=== PATIENT | male | born 1970 | race Two or more races ===

== ENCOUNTER 2022-12-09 11:45 | Emergency (ER) | payer SELFPAY ==
[2022-12-09 11:47] VITALS: BP 120/90; PULSE 101; RESP 17; TEMP 36.8; O2SAT 96; BMI 27.1
[2022-12-09 11:54] VITALS: BP 120/90; PULSE 112; O2SAT 95
--- NOTE | 2022-12-09 12:04 | PC.NURSE ---
pt instructed to get into gown at this time
--- NOTE | 2022-12-09 12:21 | PC.NURSE ---
this nurse and MD at bedside for pt I&D. packed wound with 1/2in iodaform and made appointment with infusion on december 11 for dressing change
--- NOTE | 2022-12-09 12:21 | HMH.EDGENADL ---
Discharge Plan Disposition Patient Disposition: Home, Self-Care Prescriptions Prescriptions: New hydrocodone-acetaminophen 5-325 mg tablet 1 tab PO Q6H PRN (Reason: pain) 3 Days Qty: 12 0RF amoxicillin-pot clavulanate 875-125 mg tablet 1 tab PO BID 10 Days Qty: 20 0RF Referrals Follow up/Referrals: Tino Rueda MD [Primary Care Provider] - See instructions Jeffery Bunch MD [Staff Physician] - See instructions (48 hours for wound re-assessment ) Activity Restrictions/Add. Instructions Additional Instructions/Restrictions: Have your packing replaced in 48 hours and follow-up with Dr. Ward or Dr. Vital within 1 week ideally within 48 hours for wound reassessment. Return with any spreading redness fevers feeling systemically ill etc. Clinical Impressions Clinical Impression: Abscess, perirectal Discharge ED Provider: Damaris Khan General Adult HPI General Stated complaint: Pain near anal area Time Seen by Provider: 12/09/22 12:21 History of Present Illness HPI narrative: Patient is a 52-year-old male presenting with pain around his rectal area its been going on the last several days. Is located on the right inferior medial aspect of his buttock red hot tender swollen. He has no purulent drainage from his rectum no history of any abscesses in his rectum in the past. No fevers or chills does not feel sick. Denies any other significant past medical history. Related Data Previous Rx's Medication Instructions Recorded amoxicillin 875 mg-potassium 1 tab PO BID 10 days #20 tabs 12/09/22 clavulanate 125 mg tablet hydrocodone 5 mg-acetaminophen 325 1 tab PO Q6H PRN pain 3 days #12 12/09/22 mg tablet tabs Allergies Allergy/AdvReac Type Severity Reaction Status Date / Time No Known Allergies Allergy Verified 12/09/22 12:53 [facility] Disclaimer: The information contained in this section may have been updated after the patient was seen, as this information can be updated by other users. Social History Smoking Status: Unknown if ever smoked alcohol intake: never current occupational status: other Travel in the last 8 weeks: None ROS Obtained: Yes All systems reviewed & no additional complaints except as documented Physical Exam General General appearance: alert Respiratory Respiratory exam: Present normal lung sounds bilaterally; Absent wheezes Cardiovascular Cardiovascular exam: Present regular rate; Absent tachycardia Abdominal Exam Abdominal exam: Present other (Patient has a 8 x 4 cm area of erythema and fluctuance on the inferior medial aspect of his buttock that does not come near his anus) Neurological Exam Neurological exam: Present alert and oriented X3 Medical Decision Making Dev Inquiry Pt receiving controlled substance: No Vital Signs: 12/09/22 11:54 Pulse Rate 112 H Blood Pressure 120/90 Blood Pressure Mean 99 02 Sat by Pulse Oximetry 95 Oxygen Delivery Method Room Air Orders (Tests/Meds): ED MEDICATIONS Discontinued Medications Generic Name Dose Route Start Last Admin Trade Name Freq PRN Reason Stop Dose Admin Amoxicillin/Clavulanate Potassium 2 each 12/09/22 12:34 Amoxicillin/Pot Clavulan 500mg Tablet PO 12/09/22 12:35 ONCE ONE ORDERS Category Date Time Status Wound Culture and Gram Stain Stat Micro 12/09/22 12:34 Ordered Medical Decision Narrative: 52-year-old male with a perirectal abscess no evidence of any fistula from a clinical standpoint not systemically ill I discussed with Dr. Ward his preference and we will do a bedside incision and drainage start the patient on Augmentin and have him follow-up within 1 week with surgery. No need for any labs or CT imaging aside from Gram stain and culture. I did a limited bedside ultrasound and evaluated the point of maximal fluctuance there is a 5 x 5 cm area of abscess on the medial aspect of his right buttock and incision was placed above this large amoun
--- NOTE | 2022-12-09 12:34 | PC.NURSE ---
DR RODARTE SPEAKING WITH DR BAILEY
[2022-12-09 13:12] VITALS: BMI 27.1
--- NOTE | 2022-12-09 13:29 | PC.NURSE ---
pt given mesh panties and a large maxi pad to put on for comfort and to help stay clean. pt given a bag full of things to assist with comfort and staying clean at home. no complaints at this time
--- NOTE | 2022-12-09 13:31 | PC.NURSE ---
[id number]- spoke with RADHA Law regarding pt's appointment with Dr. Vital.
[2022-12-09 13:38] VITALS: BP 123/86; PULSE 81; RESP 17; TEMP 37; O2SAT 98
--- NOTE | 2022-12-12 17:31 | PC.NURSE ---
per dr. khan request to do f/u call with pt. contacted pt with both numbers noted on pts chart, no answer at either number, voicemail left for pt asking for return call. Dr. Khan gave verbal order for Levaquin 750 mg PO 1 tablet daily x7 days if symptoms not improving.
== END 2022-12-09 13:45 | disposition home or self-care (01) ==
PROVIDERS: Emergency Provider Student in an Organized Health Care Education/Training Program; PCP Emergency Medicine
DX: K61.1 Rectal abscess (principal)
CPT/HCPCS: 10060; 87070; 87077; 87186; 87205; 99283; 99284

== ENCOUNTER 2022-12-11 11:19 | Outpatient (CLI) | payer SELFPAY | END 2022-12-16 10:55 | disposition home or self-care (01) | LOC: INF 11:21 | PROVIDERS: PCP Emergency Medicine; Visit Provider Student in an Organized Health Care Education/Training Program | DX: L02.31 Cutaneous abscess of buttock (principal); Z48.01 Encounter for change or removal of surgical wound dressing | CPT/HCPCS: G0463 ==

== ENCOUNTER 2022-12-16 10:19 | Outpatient (CLI) | payer SELFPAY ==
--- NOTE | 2022-12-16 12:41 | PC.NURSE ---
1040 - PT CAME IN AND PACKING/DRESSING FROM YESTERDAYS DR WOODSON HAD ALREADY COME OUT. IRRIGATED WOUND WITH NS AND DRIED OUT AND MEASURED WOUND WITH STERILE Q TIP. THERE IS A TUNNEL GOING UPWARD THAT MEASURES 3.5 CM AND A TUNNEL DOING DOWNWARD, MEASURING 3 CM. PACKED WITH 1/4 IN PLAIN PACKING STRIP AND COVERED WITH TEGADERM.
== END 2022-12-16 10:55 | disposition home or self-care (01) ==
LOC: INF 10:19
PROVIDERS: PCP Emergency Medicine; Visit Provider Surgery
DX: K61.1 Rectal abscess (principal); Z48.01 Encounter for change or removal of surgical wound dressing
CPT/HCPCS: G0463

== ENCOUNTER 2022-12-17 08:31 | Outpatient (CLI) | payer SELFPAY | END 2022-12-17 08:56 | disposition home or self-care (01) | LOC: INF 08:31 | PROVIDERS: PCP Emergency Medicine; Visit Provider Surgery | DX: K61.1 Rectal abscess (principal); Z48.01 Encounter for change or removal of surgical wound dressing | CPT/HCPCS: G0463 ==

== ENCOUNTER 2022-12-18 08:16 | Outpatient (CLI) | payer SELFPAY | END 2022-12-18 08:38 | disposition home or self-care (01) | LOC: INF 08:16 | PROVIDERS: PCP Emergency Medicine; Visit Provider Surgery | DX: K61.1 Rectal abscess (principal); Z48.01 Encounter for change or removal of surgical wound dressing | CPT/HCPCS: G0463 ==

== ENCOUNTER 2022-12-19 07:58 | Outpatient (CLI) | payer SELFPAY ==
--- NOTE | 2022-12-19 08:35 | PC.NURSE ---
pt scheduled for dressing change of perianal abscess. pt tolerated removal of old packing well. area and wound bed cleansed with saline. new dressing packed in wound bed. able to pack dressing downward, but due to pt anatomy and angle of incision packing was difficult to insert upward. tegaderm applied over site.
== END 2022-12-19 08:35 | disposition home or self-care (01) ==
PROVIDERS: PCP Emergency Medicine; Visit Provider Surgery
DX: K61.1 Rectal abscess (principal); Z48.01 Encounter for change or removal of surgical wound dressing
CPT/HCPCS: G0463

== ENCOUNTER → 2022-12-20 07:43 | Outpatient (CLI) | payer SELFPAY | LOC: INF 07:44 | PROVIDERS: PCP Emergency Medicine; Visit Provider Surgery | DX: K61.1 Rectal abscess (principal); Z48.01 Encounter for change or removal of surgical wound dressing | CPT/HCPCS: G0463 ==

== ENCOUNTER 2022-12-21 08:20 | Outpatient (CLI) | payer SELFPAY | END 2022-12-21 08:40 | disposition home or self-care (01) | LOC: INF 08:20 | PROVIDERS: PCP Emergency Medicine; Visit Provider Surgery | DX: K61.1 Rectal abscess (principal); Z48.01 Encounter for change or removal of surgical wound dressing | CPT/HCPCS: G0463 ==

== ENCOUNTER 2022-12-22 08:27 | Outpatient (CLI) | payer SELFPAY | END 2022-12-22 08:53 | disposition home or self-care (01) | LOC: INF 08:28 | PROVIDERS: PCP Emergency Medicine; Visit Provider Surgery | DX: K61.1 Rectal abscess (principal); Z48.01 Encounter for change or removal of surgical wound dressing | CPT/HCPCS: G0463 ==

== ENCOUNTER 2022-12-23 08:31 | Outpatient (CLI) | payer SELFPAY | END 2022-12-23 08:58 | disposition home or self-care (01) | LOC: INF 08:32 | PROVIDERS: PCP Emergency Medicine; Visit Provider Surgery | DX: K61.1 Rectal abscess (principal); Z48.01 Encounter for change or removal of surgical wound dressing | CPT/HCPCS: G0463 ==

== ENCOUNTER 2023-01-01 09:39 | Outpatient (CLI) | payer SELFPAY | END 2023-01-01 10:20 | disposition home or self-care (01) | LOC: INF 09:39 | PROVIDERS: PCP Emergency Medicine; Visit Provider Surgery | DX: K61.1 Rectal abscess (principal); Z48.01 Encounter for change or removal of surgical wound dressing | CPT/HCPCS: G0463 ==

== ENCOUNTER 2023-03-30 09:47 | Outpatient (CLI) | payer SELFPAY ==
--- NOTE | 2023-03-30 09:54 | PC.NURSE ---
0954-collected labs via venipuncture stick with butterfly needle in left ac;sent specimens to lab.pt to d/c home
[2023-03-30 10:32] LABS: Basophils # 0.1 K/mm3 (0-0.2); Basophils % 0.8 % (0.1-2.0); Eosinophils # 0.2 K/mm3 (0.0-0.4); Eosinophils % 2.5 % (0.1-12.0); Hematocrit 50.5 % (42.0-52.0); Hemoglobin 16.1 g/dL (14.1-18.0); Lymphocytes # 2.5 K/mm3 (0.7-4.5); Lymphocytes % 37.8 % (10-50); Mean Corpuscular HGB Conc 31.8 g/dL (31.8-35.4); Mean Corpuscular Hemoglobin 30.7 pg (27.0-31.2); Mean Corpuscular Volume 96.6 fl (80-94); Mean Platelet Volume 8.4 fl (7.4-10.4); Monocytes # 0.4 K/mm3 (0.1-1.0); Monocytes % 5.4 % (1.7-9.3); Neutrophils # 3.5 K/mm3 (1.8-7.8); Neutrophils % 53.5 % (37.0-80.0); Platelet Count 215 K/mm3 (142-424); Red Blood Count 5.23 M/mm3 (4.60-6.20); Red Cell Distribution Width 13.7 % (11.5-17.5); White Blood Count 6.5 K/mm3 (4.8-10.8)
[2023-03-30 10:38] LABS: Anion Gap 14.9 mEq/L (5-15); Blood Urea Nitrogen 15 mg/dl (9-20); Calcium 9.2 mg/dl (8.4-10.2); Carbon Dioxide 22 mmol/L (22.0-30.0); Chloride 104 mmol/L (98-107); Estimated Glomerular Filt Rate 175 ml/min (>60); GFR (African American) 211 ML/MIN (>60); Glucose 246 mg/dl (74-100); Potassium 3.9 mmoL/L (3.5-5.1); Sodium 137 mmol/L (136-145)
== END 2023-03-30 10:05 | disposition home or self-care (01) ==
LOC: INF 09:48
PROVIDERS: Surgery; PCP Emergency Medicine; Visit Provider Emergency Medicine
DX: K60.3 Anal fistula (principal)
CPT/HCPCS: 36415; 80048; 85025

== ENCOUNTER 2023-04-05 07:57 | Day surgery (SDC) | payer SELFPAY ==
[2023-04-05] VITALS (10 sets, daily range): BP systolic 120–144; BP diastolic 75–93; PULSE 54–64; RESP 13–22; TEMP 36.1–43; O2SAT 94–98; BMI 35.7
--- NOTE | 2023-04-05 08:25 | P.PNANES_ITS ---
[facility] Disclaimer: The information contained in this section may have been updated after the patient was seen, as this information can be updated by other users. Medical History Abscess, perirectal Alcohol abuse Surgical History (Updated 04/05/23 @ 08:16 by Parris Aviles RN) No significant past surgical history Family History (Updated 04/05/23 @ 08:16 by Parris Aviles RN) Other No significant family history Social History (Updated 04/05/23 @ 08:16 by Parris Aviles RN) Smoking Status: Never smoker alcohol intake: current substance use type: denies use current occupational status: employed Travel in the last 8 weeks: None household members: significant other housing: house lives independently: No marital status: life partner service: No care home: No physical activity: none special jose angel needs: No agree to transfusion: No [facility] Anesthesia Checklist Patient Identification Patient Identification: Arm Band Structural Data Admitted From: Home Planned Operative Procedure/s: EUA, Anal Fistulotomy Consent for Planned Operative Procedure(s) Verified: Yes Verified Documents: Surgical Consent and History and Physical NPO Status Verified Time NPO: 00:00 Additional verifications Anesthesia Reactions: No Airway Assessment Mallampati Score:: Class II C-Spine Mobility Assessed: Yes TMJ Mobility Assessed: Yes Dentition: Good Dentition Neurological Assessment Level of Consciousness: Awake and Alert Anesthesia Plan Anesthesia Risk discussed: Yes Anesthesia Plan: Verified ASA Class: II Anesthesia Type: General
--- NOTE | 2023-04-05 09:09 | EXP.OP.NOTE ---
Date of procedure: 04/05/23 Pre-op Diagnosis:: Possible anal fistula Post-op Diagnosis:: Same Procedure performed:: Exam under anesthesia Surgeon:: Nishant Vital MD SWEET POTATO DISINTEGRATOR:: Ge Ochoa Anesthesia: LMA Estimated blood loss (mL): 1 Clinical Note:: Patient presents to the operating room for possible fistulotomy for probable anal fistula. He is a 53-year-old male who had undergone incision and drainage in the emergency department for perianal abscess on 12/09/2022. He was followed in the office regularly. The area had closed off and healed over but then he had developed some drainage of serosanguineous fluid and had recurrent opening. He was seen in the office on 02/25/2023 for this. At that time it was apparent that the patient had a probable perianal fistula. I had the family continue to place 1/4 inch gauze as a wick. She is no longer able to place this but does probe the area with the back end of a cotton-tipped applicator. Has had some occasional drainage. Given the persistent opening and occasional drainage it was felt that clinically he likely had an anal fistula. Options were discussed and plan was made for exam under anesthesia with probable subcutaneous fistulotomy versus seton placement if intersphincteric or Transphincteric fistula identified. Operative findings:: Patient had a short blind external opening with no definite fistula. No evidence of any internal opening. Operative note:: Patient was taken the operating room. He was given preoperative intravenous antibiotic. In the operating room he was placed in a supine position. General anesthesia was induced via LMA. He was then positioned in lithotomy position. He was prepped and draped in the standard surgical fashion. Inspection was performed. In the right anterior lateral location there was apparent external opening at previous incision and drainage site. Digital examination was performed which revealed no evidence of any intra-anal pathology. [place] anoscope was inserted. There is some minor erythematous internal hemorrhoids but no definite internal opening was identified. Blunt probe was inserted into the external opening. There was very little tracking. The probe only went to about 1 cm in depth. Repositioning and redirection of the probe resulted in no significant tracking. The probe was then curved and attempt was made to identify internal opening of which none was noted. Smaller probe was then brought onto the field. This was inserted. Once again there was no appreciable tracking of any definitive fistula. An 18-gauge angiocatheter was inserted into the apparent external opening and saline was gently flushed and attempt to see if there was any tracking of which none was noted. Minimal opening was irrigated. At this time it was felt that there was no definite fistula and therefore fistulotomy would not be warranted. Plan will be for watchful waiting. He could develop a fistula in the future. Condition: stable Disposition: PACU Complications:: None immediately apparent
--- NOTE | 2023-04-05 09:14 | EXP.ANES.I ---
[facility] Anesthesia Record Part I Anesthesia Record I Intake, IV Amount: 800 Hydration: Adequate Estimated blood loss (mL): 5 Urine output (mL): 0 Blood Products used (#): none Blood Pressure: 120/75 SaO2: 94 Pulse Rate: 58 Airway Patency: Patent Respiratory Rate: 16 Temperature: 98.5 F Patient is:: Drowsy and Stable Stable to PACU at:: 09:10
--- NOTE | 2023-04-06 07:07 | P.PNANES_ITS ---
[facility] Anesthesia Record Part II Anesthesia Record Part II Discharge Time: 09:40 Destination: Surgical Day Care (OP Surgery) PACU nurse assessment reviewed?: Yes Patient Condition:: Good Anesthesia Complications:: None Swallowing reflex intact?: Yes Airway Patency: Patent Cyanosis?: No Blood Pressure: 139/83 SaO2: 96 Respiratory Rate: 22 Pulse Rate: 60 Temperature: 98.5 F Mental Status: Alert & Oriented Pain level:: 0 Nausea and/or vomitting:: None Intake, IV Amount: 0 Hydration: Adequate
[2023-04-06 07:08] VITALS: BP 139/83; PULSE 60; RESP 22; TEMP 36.9; O2SAT 96
== END 2023-04-05 10:11 | disposition home or self-care (01) ==
PROVIDERS: PCP Emergency Medicine; Visit Provider Surgery
PROC: (CPT 45990; principal; 2023-04-05 09:45)
DX: T81.31XA Disruption of external operation (surgical) wound, not elsewhere classified, initial encounter (principal)
CPT/HCPCS: 45990; 96374; J2405

== ENCOUNTER → 2023-04-23 10:01 | Outpatient (CLI) | payer SELFPAY ==
--- NOTE | 2023-04-23 10:08 | CT_ITS ---
FINAL REPORT CLINICAL HISTORY: rectal pain, poss abscess with drainage COMPARISON: None FINDINGS: CT OF THE ABDOMEN AND PELVIS WITH CONTRAST Axial CT images of the abdomen and pelvis were obtained after the administration of oral and iv contrast. Coronal and sagittal reformatted images were also obtained and reviewed.This study was performed with techniques to keep radiation doses as low as reasonably achievable (ALARA). Individualized dose reduction techniques using automated exposure control or adjustment of mA and/or kV according to the patient's size were employed. Abdomen: The lung bases are clear. The heart is normal in size. There is fatty infiltration of the liver present. The spleen is unremarkable. No adrenal mass is present. The pancreas has an unremarkable appearance. The kidneys are normal, without evidence of mass or hydronephrosis. The aorta is normal in caliber. There is no free fluid or adenopathy. No mass or abnormal fluid collection is seen. Pelvis: The appendix is normal in appearance. The urinary bladder is unremarkable. There is stranding in the right inferomedial gluteal fold consistent with inflammatory change. A perianal fistula is not excluded. There is no definite fluid collection to suggest an abscess. Several sigmoid diverticula are noted without adjacent inflammatory change. There is no evidence of mass or adenopathy. There is no evidence of bowel obstruction. IMPRESSION: Stranding in the right inferomedial gluteal fold consistent with inflammatory change. A perianal fistula is not excluded. No definite fluid collection to suggest an abscess is seen. Fatty infiltration of the liver. Reviewed, Interpreted and Dictated by Nishant Perez III, MD Transcribed by Leidy Warren Authenticated and . [facility]
== END ==
LOC: RAD 10:02
PROVIDERS: PCP Emergency Medicine; Visit Provider Surgery
DX: K61.1 Rectal abscess (principal)
CPT/HCPCS: 74177; Q9967

== ENCOUNTER 2024-08-14 12:55 | Emergency (ER) | payer SELFPAY ==
[2024-08-14 12:56] VITALS: BP 105/76; PULSE 88; RESP 18; TEMP 37.2; O2SAT 96; BMI 33.7
[2024-08-14 15:00] VITALS: BP 130/76; PULSE 90; RESP 18; O2SAT 98
--- NOTE | 2024-08-14 15:18 | ED_ITS ---
<Statement entered by Damaris Khan MD - 08/14/24 22:53> I was consulted by the WENDY, and we discussed the complexity of the problems being addressed. I approved the treatment and management plan for this patient's care in the emergency department, thus performing a substantive portion of the medical decision making. Damaris Khan MD, TRIP, FACEP Discharge Plan Disposition Patient Disposition: Home, Self-Care Condition: Good Prescriptions Prescriptions: No Action trazodone 50 mg tablet 50 mg PO DAILYP PRN (Reason: Sleep) Patient Comments: TAKE ONE TABLET BY MOUTH EVERY DAY NEEDED FOR SLEEP Rx Instructions: 50 mg orally simvastatin 5 mg tablet 5 mg PO DAILY Patient Comments: TAKE ONE TABLET BY MOUTH EVERY DAY metformin 1,000 mg tablet 1,000 mg PO BID Patient Comments: TAKE ONE TABLET BY MOUTH TWICE DAILY gabapentin 300 mg capsule 300 mg PO BID Patient Comments: TAKE ONE CAPSULE BY MOUTH TWICE DAILY lisinopril 2.5 mg tablet 2.5 mg PO DAILY Patient Comments: TAKE ONE TABLET BY MOUTH EVERY DAY esomeprazole magnesium 20 mg capsule,delayed release(DR/EC) 20 mg PO DAILY Patient Comments: STOP PRILOSEC. TAKE ONE (1) CAPSULE EVERY DAY BY ORAL ROUTE. TAKE THIS FOR 14 DAYS THEN START YOUR PRILOSEC BACK AGAIN Jardiance 25 mg tablet 25 mg PO BID Patient Comments: TAKE ONE (1) TABLET BY MOUTH ONCE DAILY Referrals Follow up/Referrals: Georges Lin APRN [Primary Care Provider] - See instructions Activity Restrictions/Add. Instructions Additional Instructions/Restrictions: Follow-up with your PCP in 1 week for recheck. Return to ER for any worsening signs or symptoms. Clinical Impressions Clinical Impression: Abdominal wall asymmetry Instructions Patient Instructions: DI for Acute Abdominal Pain Print Language Print Language: Citizen Of [place] Discharge ED Provider: Damaris Khan General Adult HPI General Chief complaint: Abdominal Pain Stated complaint: RIGHT SIDE PAIN SENT FROM [facility] Time Seen by Provider: 08/14/24 15:18 Mode of Arrival: Ambulatory Source of Information: Patient and Spouse Limitations: No Limitations Description of Symptoms (Recalled from ER Triage Doc. by RN): PT REPORTS MASS TO RIGHT SIDE OF ABDOMINAL WALL FOR 2 WEEKS. NO CHANGE IN BOWEL MOVEMENTS History of Present Illness HPI narrative: Patient presents for swelling of his anterior abdominal wall. Patient cannot tell when it exactly seem to appear but he noticed it over the last 2 weeks. He is nontender to palpation he has no difficulty in eating and drinking or elimination patterns. He denies any trauma. Denies any chest pain shortness of breath fever chills hemoptysis hematochezia melena nausea vomiting or diarrhea Related Data Home Medications ?Medication ?Instructions ?Recorded ?Confirmed empagliflozin 25 mg tablet 25 mg PO BID 08/14/24 08/14/24 (Jardiance) esomeprazole magnesium 20 mg 20 mg PO DAILY 08/14/24 08/14/24 capsule,delayed release gabapentin 300 mg capsule 300 mg PO BID 08/14/24 08/14/24 lisinopril 2.5 mg tablet 2.5 mg PO DAILY 08/14/24 08/14/24 metformin 1,000 mg tablet 1,000 mg PO BID 08/14/24 08/14/24 simvastatin 5 mg tablet 5 mg PO DAILY 08/14/24 08/14/24 trazodone 50 mg tablet 50 mg PO DAILYP PRN Sleep 08/14/24 08/14/24 Allergies Allergy/AdvReac Type Severity Reaction Status Date / Time No Known Allergies Allergy Verified 08/14/24 16:30 [facility] Disclaimer: The information contained in this section may have been updated after the patient was seen, as this information can be updated by other users. Medical History Abscess, perirectal Alcohol abuse 8-10 beers /day Surgical History No significant past surgical history Family History Other No significant family history Social History Smoking Status: Never smoker alcohol intake: current substance use type: denies use current occupational status: employed Travel in the last 8 weeks: None household members: significant other housing: house lives independently: No marital status: life partner service: No fpc: No physical activity: none special jose angel needs: No agree to transfusion: No Have you lived/traveled outside [place] in past 30 days?: No Contact w/someone who lives/traveled outside US past 30 days?: No Exposure to someone with infectious disease in past 14 days?: No Do you have a fever (greater than 100.4 F or 38 C)?: No Have you tested positive for COVID-19: No Exposed to someone with COVID-19 in past 14 days?: No Do you have a sore throat?: No Do you have a cough?: No Do you have any weakness?: No Do you have any diarrhea?: No Are you experiencing any unusual bleeding?: No Do you have any muscle aches/pain?: No Do you have any abdominal pain?: No Are you experiencing loss of taste or smell?: No ROS Obtained: Yes Systems reviewed as appropriate & no additional complaints except as documented Physical Exam General General appearance: alert and in no apparent distress Respiratory Respiratory exam: Present normal lung sounds bilaterally Cardiovascular Cardiovascular exam: Present regular rate Neurological Exam Neurological exam: Present alert and oriented X3 Medical Decision Making Medical Records Medical records reviewed: Yes I reviewed the patient's medical records. Screening: Per USPSTF and CDC recommendations, given the prevalence of disease in our region, it is our hospital?s policy to screen for HIV and viral Hepatitis for all patients aged 18 and over and those with ongoing risk factors. Dev Inquiry Pt receiving controlled substance: No Vital Signs: 08/14/24 12:56 08/14/24 15:00 08/14/24 17:18 Temperature 98.9 F 98.8 F Temperature Source Oral Oral Pulse Rate 90 82 Pulse Rate [Radial] 88 Respiratory Rate 18 18 18 Blood Pressure 130/76 123/60 Blood Pressure [Left Arm] 105/76 L Blood Pressure Mean [Left Arm] 85 Blood Pressure Source Automatic Cuff Automatic Cuff Blood Pressure Source [Left Arm] Automatic Cuff Blood Pressure Position Sitting Sitting Blood Pressure Position [Left Arm] Sitting 02 Sat by Pulse Oximetry 96 98 Oxygen Delivery Method Room Air Room Air Room Air Lab Data Lab results reviewed: Yes I reviewed the patient's lab results. Lab Results 08/14/24 16:55: WBC 5.4, RBC 5.18, Hgb 16.0, Hct 46.2, MCV 89.2, MCH 30.9, MCHC 34.6, RDW 12.5, Plt Count 161, MPV 10.8 H, Neut % (Auto) 74.4, Lymph % (Auto) 10.1, [place] % (Auto) 13.3 H, Eos % (Auto) 0.9, Baso % (Auto) 0.9, Neut # (Auto) 4.0, Lymph # (Auto) 0.6 L, [place] # (Auto) 0.7, Eos # (Auto) 0.1, Baso # (Auto) 0.1, Sodium 137, Potassium 3.7, Chloride 101, Carbon Dioxide 22, Anion Gap 17.7 H, BUN 14, Creatinine 0.60 L, Estimated Creat Clear 209, Estimated GFR 141, Est GFR ( Amer) 171, Glucose 141 H, Calcium 9.1, Total Bilirubin 0.5, AST 66 H, ALT 94 H, Alkaline Phosphatase 79, Total Protein 7.8, Albumin 5.1 H, Globulin 2.7, Albumin/Globulin Ratio 1.9 H, HCV Ab JEIMY w/Rflx PCR Qn Negative, HIV Ag/Ab Combo Qual Negative 08/14/24 16:55 08/14/24 16:55 Orders (Tests/Meds): ORDERS Category Date Time Status CT abdomen pelvis wo con Stat Cat Scan 08/14/24 15:37 Completed CBC w/Auto Diff [Complete Blood Count Auto Diff] Stat Lab 08/14/24 16:55 Completed CMP [Comprehensive Metabolic Panel] Stat Lab 08/14/24 16:55 Completed HIV Combo Stat Lab 08/14/24 16:55 Completed Hepatitis C Ab Qual. W/ RFX Stat Lab 08/14/24 16:55 Completed Medical Decision Narrative: In summary patient is a 54-year-old male who presents to the emergency department for evaluation of abdominal wall swelling. Patient is hemodynamically stable upon arrival, afebrile. Physical exam shows a slight fullness/protuberance of the abdominal wall musculature on the right side below the rib cage and anterior lateral section. There is no fluctuance induration cellulitis edema abdominal wall defect palpable. He is nontender to palpation.. Differential diagnosis includes lateral abdominal wall hernia versus asthenia of the abdominal wall versus possible fluid collection hematoma versus possible lipoma etc. Initial workup will be conducted with hematologic labs CT scan abdomen pelvis. Initial interventions were considered however patient is asymptomatic thus deferred. Initial workup reviewed by me shows his hematologic labs are nonactionable and my informal interpretation of his CT scan imaging shows a definitive asymmetry of the right sided abdominal wall musculature with protuberance noted in the area of interest without evidence of fluid collection cellulitis abscess prior to radiology read.. Given this patient updated on his findings with recommendations to keep track of the size of it if it continues to enlarge he may need evaluation for possible reinforcement/surgical intervention however at this point there is no intervention required. Patient advised to follow back up with his PCP for recheck in approximately 2 weeks or sooner as needed. Critical Care Critical Care Time Critical Care Time: No
--- NOTE | 2024-08-14 15:37 | CT_ITS ---
FINAL REPORT TECHNIQUE: Axial images through the abdomen and pelvis were performed without contrast. This study was performed with techniques to keep radiation doses as low as reasonably achievable, (ALARA). Individualized dose reduction techniques using automated exposure control or adjustment of mA and/or kV according to the patient's size were employed. CLINICAL HISTORY: Right sided abdominal wall swelling COMPARISON: 04/23/2023 FINDINGS: Abdomen: The lung bases are clear. There is mild fatty infiltration of the liver.. The gallbladder is present. The spleen, pancreas, adrenals and kidneys are unremarkable. There are no fluid collections. Pelvis: The urinary bladder is normal in size and configuration. The appendix is unremarkable. There is no pelvic mass or inflammation. There is no pelvic free fluid. The right anterior pelvic wall is slightly more protuberant than on the left. There are no underlying lesions. IMPRESSION: Mild fatty liver. Reviewed, Interpreted and Dictated by Donovan Jain MD Transcribed by Archana Gutierrez Authenticated and [facility]
[2024-08-14 17:03] LABS: Basophils # 0.1 K/mm3 (0-0.2); Basophils % 0.9 % (0.1-2.0); Eosinophils # 0.1 K/mm3 (0.0-0.4); Eosinophils % 0.9 % (0.1-12.0); Hematocrit 46.2 % (42.0-52.0); Lymphocytes # 0.6 K/mm3 (0.7-4.5); Lymphocytes % 10.1 % (10-50); Mean Corpuscular HGB Conc 34.6 g/dL (31.8-35.4); Mean Corpuscular Hemoglobin 30.9 pg (27.0-31.2); Mean Corpuscular Volume 89.2 fl (80-94); Mean Platelet Volume 10.8 fl (7.4-10.4); Monocytes # 0.7 K/mm3 (0.1-1.0); Monocytes % 13.3 % (1.7-9.3); Neutrophils % 74.4 % (37.0-80.0); Platelet Count 161 K/mm3 (142-424); Red Blood Count 5.18 M/mm3 (4.60-6.20); Red Cell Distribution Width 12.5 % (11.5-17.5); White Blood Count 5.4 K/mm3 (4.8-10.8)
[2024-08-14 17:12] LABS: Alanine Aminotransferase 94 U/L (12-78); Albumin Level 5.1 g/dl (3.5-5.0); Albumin/Globulin Ratio 1.9 (1.1-1.8); Alkaline Phosphatase 79 U/L (38-126); Anion Gap 17.7 mEq/L (5-15); Aspartate Amino Transferase 66 U/L (17-59); Bilirubin,Total 0.5 mg/dl (0.2-1.3); Blood Urea Nitrogen 14 mg/dl (9-20); Calcium 9.1 mg/dl (8.4-10.2); Carbon Dioxide 22 mmol/L (22.0-30.0); Chloride 101 mmol/L (98-107); Creatinine Clearance Estimated 209 mL/min (50-200); Estimated Glomerular Filt Rate 141 ml/min (>60); GFR (African American) 171 ML/MIN (>60); Globulin 2.7 g/dL (1.3-3.2); Glucose 141 mg/dl (74-100); Potassium 3.7 mmoL/L (3.5-5.1); Sodium 137 mmol/L (136-145); Total Protein,Serum 7.8 g/dl (6.3-8.2)
[2024-08-14 17:18] VITALS: BP 123/60; PULSE 82; RESP 18; TEMP 37.1; O2SAT 96
[2024-08-14 18:48] LABS: HIV Combo NEGATIVE (Negative)
[2024-08-14 18:57] LABS: Hepatitis C Ab Qual. W/ RFX NEGATIVE (Negative)
== END 2024-08-14 17:19 | disposition home or self-care (01) ==
PROVIDERS: Emergency Medicine; Physician Assistant; Emergency Provider Student in an Organized Health Care Education/Training Program; PCP Nurse Practitioner Family
DX: R19.8 Other specified symptoms and signs involving the digestive system and abdomen (principal); R22.2 Localized swelling, mass and lump, trunk
CPT/HCPCS: 74176; 80053; 85025; 86803; 87389; 99284